=== PATIENT | male | born 1950 | race Hispanic/Latino ===

== ENCOUNTER 2018-07-29 03:48 | Emergency (ER) | payer MEDICARE, OTHER ==
--- NOTE | 2018-07-29 07:59 | Emergency Department Report ---
HPI - General Chief Complaint: Skin/Abscess/Foreign Body Time Seen by Provider: 07/29/18 07:37 - HPI HPI: This is a 68-year-old male who presents to ED in that he woke up this morning and noticed some mild swelling to the left side of his face. Patient states that he has no pain of his face. Patient states that he has no ear pain, dental pain or swelling or bleeding. Patient denies any fever, nausea vomiting, inability to swallow. ED Past Medical Hx - Past Medical History Previous Medical History?: Yes Hx Psychiatric Treatment: Yes (depression) Additional medical history: GERD, High CHO, - Surgical History Past Surgical History?: No - Social History Smoking Status: Never Smoker Substance Use Type: None ED Review of Systems ROS: Stated complaint: LT SIDE SWOLLEN FACE Other details as noted in HPI Constitutional: denies: chills, fever Eyes: denies: eye pain, eye discharge, vision change ENT: denies: ear pain, throat pain Respiratory: denies: cough, shortness of breath, wheezing Cardiovascular: denies: chest pain, palpitations Endocrine: no symptoms reported Gastrointestinal: denies: abdominal pain, nausea, diarrhea Genitourinary: denies: urgency, dysuria Musculoskeletal: denies: back pain, joint swelling, arthralgia Skin: denies: rash, lesions, pruritus Neurological: denies: headache, weakness Physical Exam - Physical Exam Vital Signs: Vital Signs 07/29/18 03:54 Temperature 97.8 F Pulse Rate 89 Respiratory 18 Rate Blood Pressure 136/86 O2 Sat by Pulse 98 Oximetry Physical Exam: GENERAL: Alert and oriented x3, no apparent distress, Normal Gait, atraumatic. HEAD: Head is normocephalic and a-traumatic. EARS: symetrical, atraumatic, non tender, left ear canal clear , tympanic membrance non inflamed. gross auditory nml bilaterally. Right ear L urinate NOSE: Nose symetrical, Nontender,Nares appeared normal. MOUTH:Mouth is well hydrated and without lesions. Tonsils nonerythematous or swollen, Uvula midline, Tongue not elevated. Mucous membranes are moist. Posterior pharynx clear, no exudate or lesions. Patent airways. No signs of tonsillitis or peritonsillar abscess number no sign of gingival bleeding or abscess or swelling NECK: Supple. Non edematous, No carotid bruits. No lymphadenopathy or thyromegaly. No C-spine tenderness, no tonsillitis, LUNGS: Symetrical with respiration, CTAB. HEART: S1, S2 present, regular rate and rhythm without murmur, no rubs, no gallops. SKIN: Warm and dry, No lesions, No ulceration or induration present. ED Course Vital Signs 07/29/18 03:54 Temperature 97.8 F Pulse Rate 89 Respiratory 18 Rate Blood Pressure 136/86 O2 Sat by Pulse 98 Oximetry ED Medical Decision Making - Medical Decision Making 68-year-old male presents here with left-sided swelling. Condition was pretty mild. My evaluation patient has no dental infection, ear infection, gingival or dental infection. At this time I discussed the patient that this is most likely due to a cellulitic process. Discussed the patient will apply heat 3 times a day. Patient states [place] Vital signs are normal patient is in no acute respiratory distress. Critical care attestation.: If time is entered above; I have spent that time in minutes in the direct care of this critically ill patient, excluding procedure time. ED Disposition Clinical Impression: Swelling of left side of face Disposition: DC-01 TO HOME OR SELFCARE Is pt being admited?: No Does the pt Need Aspirin: No Condition: Stable Instructions: Cellulitis (ED) Additional Instructions: Make sure to follow up with the primary care physician as discussed. Apply heat compression or 3 times a day to the left side of his face There is no sign of any infection, tenderness or pain. If you develop any pain you can take Motrin for pain You do not have a dental infection or ear infection If you have any worsening symptoms or develop new symptoms please return to ED immediately. Referrals: PRIMARY CARE, [Primary Care Provider] - 3[facility] - [facility]-5 Days Time of Disposition: 08:09
== END 2018-07-29 08:29 | disposition home or self-care (01) ==
LOC: ED 03:48
CPT/HCPCS: 99282